=== PATIENT | female | born 1990 | race Two or more races ===

== ENCOUNTER 2025-01-28 17:14 | Emergency (ER) | payer MEDICAID ==
[~2025-01-28] VITALS: Ht 175.3 cm; Wt 65.5 kg
[2025-01-28 17:15] VITALS: BP 138/84; PULSE 87; RESP 16; TEMP 98.1; O2SAT 98
[2025-01-28] MEDS ORDERED: KETOROLAC TROMETH 60MG/2ML VIAL IM ONE (18:15)
== END 2025-01-28 20:08 | disposition left against medical advice (07) ==
LOC: ER 17:14
DX: M54.2 Cervicalgia (principal); Z53.21 Procedure and treatment not carried out due to patient leaving prior to being seen by health care provider